=== PATIENT | female | born 1955 | race Caucasian/White ===

== ENCOUNTER → 2017-06-06 | Outpatient (CLI) | payer BC | END | disposition home or self-care (01) | LOC: C.PAPS 17:18 | PROVIDERS: ATTEND Physician Assistant Medical | DX: Z01.419 Encounter for gynecological examination (general) (routine) without abnormal findings (principal) ==

== ENCOUNTER → 2017-06-19 | Outpatient (CLI) | payer BC ==
--- NOTE | 2017-06-19 15:10 | MAMMOGRAPHY REPORT ---
BILATERAL DIGITAL SCREENING MAMMOGRAM TOMOSYNTHESIS WITH CAD: 06/19/2017 CLINICAL HISTORY: Routine screening. Patient has no complaints. TECHNIQUE: Breast tomosynthesis in addition to standard 2D mammography was performed. Current study was also evaluated with a Computer Aided Detection (CAD) system. COMPARISON: Comparison is made to exams dated: 06/16/2016 mammogram, 06/14/2015 mammogram, 06/11/2014 m ammogram, 06/10/2013 mammogram, 06/04/2012 mammogram, and 05/24/2010 mammogram - [facility]. BREAST COMPOSITION: The tissue of both breasts is heterogeneously dense, which may obscure small mas ses. FINDINGS: There is a focal asymmetry in the 12:00 to 12:30 middle to posterior right breast, best se en on the tomosynthesis images. Although this could represent normal overlapping fibroglandular tiss ue, additional spot compression tomosynthesis views with possible ultrasound are recommended. No other suspicious mass, architectural distortion or cluster of microcalcifications is seen bilatera lly. IMPRESSION: ACR BI-RADS CATEGORY 0: INCOMPLETE EVALUATION: NEED ADDITIONAL IMAGING EVALUATION The focal asymmetry in the 12:00 to 12:30 right breast needs additional imaging evaluation. The patient will be called to schedule an appointment. Approximately 10% of breast cancers are not detected with mammography. A negative mammographic report should not delay biopsy if a clinically suggestive mass is present. Sinai Roger M.D. ay/:06/19/2017 08:45:19 [place] Former: Isabelle Molina, [facility] letter sent: Addl Imaging 0 BI-RADS Code: ACR BI-RADS Category 0: Incomplete Evaluation: Need Additional Imaging Evaluation
== END | disposition home or self-care (01) ==
LOC: C.MAMM 08:12
PROVIDERS: ATTEND Internal Medicine Geriatric Medicine
DX: Z12.31 Encounter for screening mammogram for malignant neoplasm of breast (principal); N64.89 Other specified disorders of breast

== ENCOUNTER → 2017-06-27 | Outpatient (CLI) | payer BC ==
--- NOTE | 2017-06-27 14:12 | MAMMOGRAPHY REPORT ---
UNILATERAL RIGHT DIGITAL DIAGNOSTIC MAMMOGRAM TOMOSYNTHESIS AND TARGETED RIGHT ULTRASOUND: 06/27/2017 CLINICAL HISTORY: Callback from screening mammogram for right breast asymmetry. TECHNIQUE: Breast tomosynthesis in addition to standard 2D mammography was performed. Spot compress ion right CC and MLO 2-D and tomosynthesis images were obtained. COMPARISON: Comparison is made to exams dated: 06/19/2017 mammogram, 06/16/2016 mammogram, 06/14/2015 mammogram, 06/11/2014 mammogram, 06/10/2013 mammogram, and 06/04/2012 mammogram - [facility]. BREAST COMPOSITION: The tissue of the right breast is heterogeneously dense, which may obscure small masses. FINDINGS: The previously described asymmetry within the right 12 to 12:30 breast effaces on the addit ional spot compression views, and has the appearance of normal fibroglandular tissue on the additiona l tomosynthesis images. No suspicious mass, architectural distortion, or other suspicious finding is seen on the additional views. Targeted ultrasound was performed of the right 12 to 1:00 breast in the region of the mammographic as ymmetry. Sonographically normal tissue is seen in this region, without evidence of a mass or other s uspicious sonographic abnormality. IMPRESSION: ACR BI-RADS CATEGORY 2: BENIGN, TARGETED ULTRASOUND ACR BI-RADS CATEGORY 2: BENIGN The right breast asymmetry effaces on the additional views, without corresponding suspicious sonograp hic abnormality evident. Findings are benign and compatible with normal overlapping fibroglandular t issue. There is no mammographic or targeted sonographic evidence of malignancy. A 1 year screening m ammogram is recommended. The patient has been verbally notified of the results. Approximately 10% of breast cancers are not detected with mammography. A negative mammographic report should not delay biopsy if a clinically suggestive mass is present. Malgorzata Sargent M.D. /:06/27/2017 13:45:24 [place] Iron[employer]: Estella BUSTOS(Lucas)(M), [facility] letter sent: Normal 1/2 BI-RADS Code: ACR BI-RADS Category 2: Benign Ultrasound BI-RADS: ACR BI-RADS Category 2: Benign
== END | disposition home or self-care (01) ==
LOC: C.MAMM 13:15
PROVIDERS: ATTEND Internal Medicine Geriatric Medicine
DX: N64.89 Other specified disorders of breast (principal)

== ENCOUNTER → 2018-02-01 | Outpatient (CLI) | payer BC ==
[2018-02-01 11:28] LABS: BASO % 0.5 %; BASO ABS # 0.02 K/uL (0-0.2); EOS % 4.8 %; HEMATOCRIT 38.5 % (37-47); HEMOGLOBIN 13.5 g/dL (12.0-16.0); LYMPH % 42.3 %; LYMPH ABS # 1.75 K/uL (1.2-3.4); MEAN CELL VOLUME 91.2 fL (80-100); MEAN CORPUSCULAR HGB CONC 35.1 g/dl (32-36); MEAN PLATELET VOLUME 11.3 fL (7.4-10.4); MONO % 8.2 %; MONO ABS # 0.34 K/uL (0.11-0.59); NEUT % 44.2 %; NEUT ABS # 1.83 K/uL (1.4-6.5); PLATELET COUNT 218 K/uL (130-400); RED CELL DISTRIBUTION WIDTH CV 12.3 % (11.5-14.5); RED CELL DISTRIBUTION WIDTH SD 41.1 fL (36.4-46.3); WHITE BLOOD COUNT 4.14 K/uL (4.8-10.8)
[2018-02-01 11:47] LABS: ALBUMIN 3.9 gm/dl (3.4-5.0); ALKALINE PHOSPHATASE 107 U/L (45-117); ALT/SGPT 27 U/L (12-78); AST/SGOT 20 U/L (15-37); BLOOD UREA NITROGEN 23 mg/dl (7-18); CALCIUM 9.1 mg/dl (8.5-10.1); CARBON DIOXIDE 27 mmol/L (21-32); CHOLESTEROL 215 mg/dl (0-200); CREATININE 0.91 mg/dl (0.60-1.20); GLUCOSE 99 mg/dl (70-99); LDL CHOLESTEROL CALCULATED 139 mg/dl; POTASSIUM 4.2 mmol/L (3.5-5.1); SODIUM 138 mmol/L (136-145); TOTAL PROTEIN 7.9 gm/dl (6.4-8.2)
[2018-02-04 11:33] LABS: CA 125 **TC 29256X 6 U/ML (<35)
== END | disposition home or self-care (01) ==
LOC: C.LABBC 07:38
PROVIDERS: ATTEND Internal Medicine
DX: Z00.00 Encounter for general adult medical examination without abnormal findings (principal); R14.0 Abdominal distension (gaseous); R19.4 Change in bowel habit

== ENCOUNTER → 2018-02-05 | Outpatient (CLI) | payer BC | END | disposition home or self-care (01) | LOC: C.LABBC 14:37 | PROVIDERS: ATTEND Internal Medicine | DX: Z00.00 Encounter for general adult medical examination without abnormal findings (principal); R14.0 Abdominal distension (gaseous); R19.4 Change in bowel habit ==

== ENCOUNTER 2019-05-30 07:39 | Inpatient (IN) ==
[2019-05-30] MEDS ORDERED: OPTIRAY 320 125ml IV PRN (08:02)
[2019-05-30] MEDS ORDERED: MAGNESIUM SULFATE / D5W 1 GM/100 ML BAG IV ONE (08:05)
[2019-05-30] MEDS ORDERED: MAGNESIUM SULFATE 1GM / D5W BAG IV ONE (08:07)
[2019-05-30] MEDS ORDERED: SODIUM CHLORIDE 0.9% 1000ML 1,000 ML IV ONE (08:07)
[2019-05-30 08:11] LABS: Basophils # (auto) 0.02 K/uL (0-0.2); Basophils % (auto) 0.4 %; Eosinophils # (auto) 0.21 K/uL (0-0.5); Eosinophils % (auto) 4.4 %; Hemoglobin 13.7 g/dL (12.0-16.0); Lymphocytes # (auto) 1.98 K/uL (1.2-3.4); Lymphocytes % (auto) 41.5 %; Mean Corpuscular Hemoglobin 32.3 pg (25-34); Mean Corpuscular Hgb Conc 35.1 g/dL (32-36); Mean Platelet Volume 10.6 fL (7.4-10.4); Monocytes # (auto) 0.35 K/uL (0.11-0.59); Monocytes % (auto) 7.3 %; Neutrophils # (auto) 2.21 K/uL (1.4-6.5); Neutrophils % (auto) 46.4 %; Platelet Count 234 K/uL (130-400); RDW Coefficient of Variation 12.5 % (11.5-14.5); RDW Standard Deviation 42.1 fL (36.4-46.3); Red Blood Count 4.24 M/uL (4.2-5.4); White Blood Count 4.77 K/uL (4.8-10.8)
[2019-05-30 08:15] LABS: iSTAT Creatinine 0.9 mg/dl (0.6-1.3); iSTAT Hemoglobin 13.6 g/dl (12.0-16.0); iSTAT Ionized Calcium 1.2 mmol/l (1.12-1.32); iSTAT Potassium 3.6 mEq/L (3.3-5.0)
--- NOTE | 2019-05-30 08:21 | CT Scan Report ---
CT angio head w con CLINICAL HISTORY: 64 years-old Female presenting with left sided weakness, stroke evaluation. TECHNIQUE: Multidetector CT angiography of the head was performed after the administration of intrave nous contrast. 3-D volumetric and/or maximum intensity projection (MIP) images were subsequently mirian nstructed for review. IV contrast: 120 mL of Optiray 320. One or more dose lowering techniques were u sed consistent with the principles of ALARA (as low as reasonably achievable), including automatic ex posure control, mA or kV adjustment to individual patient size, and/or use of iterative reconstructio n. COMPARISON: None. CT DOSE (mGy.cm): The estimated cumulative dose is 1080.28 mGy.cm. FINDINGS: Manager Outpatient topogram: Unremarkable. Anterior circulation: Intracranial portions of the internal carotid arteries patent to the level of t he termini. Anterior cerebral arteries (VLADIMIR) patent with 3 A2 segments noted, two of which arises fro m the right VLADIMIR. Middle cerebral arteries patent. Anterior communicating artery is hypoplastic or apl astic. Posterior circulation: Codominant vertebral arteries. Intradural portions of the vertebral arteries p atent. Posterior inferior cerebellar arteries patent. Basilar artery patent. Anterior inferior cerebe llar arteries poorly visualized. Superior cerebellar arteries patent. Posterior cerebral arteries pat ent. Posterior communicating arteries hypoplastic or aplastic. Dural venous sinuses: Patent. Other: Allowing for the phase of contrast, brain parenchyma within normal limits. Calvarium intact. IMPRESSION: 1. No evidence of aneurysm, focal vessel occlusion, or significant stenosis of the intracranial soila eliana. Electronically signed by: Shawn Bueno M.D. 05/30/2019 8:20 AM
--- NOTE | 2019-05-30 08:21 | CT Scan Report ---
CT angio neck with con HISTORY: left sided weakness TECHNIQUE: Multiaxial CT angiography of the neck was performed IV contrast: 100 cc nonionic All eduardo urements were calculated based on NASCET criteria. Maximum intensity projection images were also obt ained. A dose lowering technique was utilized adhering to the principles of ALARA. COMPARISON STUDY: None. FINDINGS: The aortic arch and proximal great vessels are widely patent. There is no significant sten osis, occlusion, or dissection identified within the bilateral common carotid, internal carotid, or v ertebral arteries. Moderate scattered plaque formation. No significant stenosis. IMPRESSION: No significant stenosis, occlusion, or dissection identified within the carotid or vertebral arteries . Mild to moderate scattered plaque formation The above report was generated using voice recognition software. It may contain grammatical, syntax or spelling errors. Electronically signed by: Juancarlos Majano M.D. 05/30/2019 8:20 AM
[2019-05-30 08:25] LABS: Aspartate Aminotransferase 17 U/L (15-37); BUN Creatinine Ratio 17.8 (10-20); Blood Urea Nitrogen 16 mg/dl (7-18); Calcium 9.6 mg/dl (8.5-10.1); Carbon Dioxide 25 mmol/L (21-32); Chloride 108 mmol/L (98-107); Creatinine Clr Calc Pharmacy 57.2 ml/min; Est GFR (African American) 81.6; Est GFR (Non-African American) 70.4; Glucose 105 mg/dl (70-99); Magnesium 2.1 mg/dl (1.8-2.4); Partial Thromboplastin Ratio 0.9; Partial Thromboplastin Time 25.1 Seconds (21.0-31.0); Potassium 3.6 mmol/L (3.5-5.1); Prothrombin Time 9.9 Seconds (9.0-12.0); Sodium 140 mmol/L (136-145)
--- NOTE | 2019-05-30 08:26 | CT Scan Report ---
HEAD CT NONCONTRAST CT DOSE: HISTORY: Stroke symptoms. TECHNIQUE: Multiaxial CT images of the head were performed without the use of intravenous contrast. A utomated exposure control was utilized for this study. A dose lowering technique was utilized adheri ng to the principles of ALARA. Comparison: None. Findings: The paranasal sinuses and mastoid air cells are clear. The calvarium and skull base are int act. The ventricles and sulci are within normal limits. There is no mass, hematoma, midline shift, or acute infarct. Punctate hypodensity within the left parietal periventricular white matter likely rep resents a microvascular ischemic change or an old lacunar infarct. Impression: No acute intracranial abnormality. Electronically signed by: Chase Rabago M.D. 05/30/2019 8:25 AM
[2019-05-30 08:30] LABS: Alanine Aminotransferase 28 U/L (12-78); Alkaline Phosphatase 110 U/L (45-117); Bilirubin,Total 0.8 mg/dl (0.2-1); Globulin 4.2 gm/dl (2.5-4.0); Total Protein 8.2 gm/dl (6.4-8.2); Troponin I < 0.015 ng/ml (0-0.045)
[2019-05-30] MEDS ORDERED: ASPIRIN CHEW 324 MG PO STA (08:31)
[2019-05-30] MEDS ORDERED: GADOBUTROL 65ML VIAL IV PRN (09:17)
--- NOTE | 2019-05-30 09:35 | Magnetic Resonance Report ---
Brain MRI WITH AND WITHOUT CONTRAST HISTORY: Stroke symptoms. Left leg weakness. TECHNIQUE: Multiplanar multisequence MRI of the brain was performed both before and after the intrave nous administration of contrast. COMPARISON STUDY: Head CT 05/28/2019. FINDINGS: There is a 12 mm focus of restricted diffusion within the white matter of the right posteri or frontal lobe near the high convexity. This is consistent with an acute infarct. The midline struct ures are intact. A few punctate foci of T2 hyperintensity within the periventricular white matter of the supratentorial brain. These are nonspecific but favor mild microvascular ischemic change. There i s no mass, hematoma, midline shift. The ventricles and sulci are within normal limits. There is no ma ss, hematoma, midline shift. The ventricles and sulci are within normal limits. There is an old small left parietal. Ventricular infarct. The paranasal sinuses and mastoid air cells are clear. The major vascular flow voids at the skull base are well-maintained. No abnormal enhancement. IMPRESSION: A small acute infarct within the right posterior frontal lobe near the high convexity. Electronically signed by: Chase Rabago M.D. 05/30/2019 9:33 AM
--- NOTE | 2019-05-30 09:35 | Emergency Department Note ---
Entered by uV Torres acting as a scribe for History of Present Illness General Chief complaint: Leg Injury/Pain Stated complaint: L LEG PAIN Time Seen by Provider: 05/30/19 07:49 Source: patient Mode of arrival: ambulatory Limitations: no limitations History of Present Illness Onset (ago): hour(s) 2 Location: lower extremity (left leg ) Pain Consistency: + intermittent Maximum Pain Intensity: 0 Quality: + other (numb, tingling, weak) Associated symptoms: + weakness and + other (numbness, tingling) The patient is a 64 year old female who presents to the Emergency Room with complaints of an episode of intermittent left leg pain that started at 6 am, two hours prior to arrival. The patient notes she felt numbness, tingling and weakness in her left leg. She notes that she had not had any episodes like this in the past. She reports that she had no issues with her right leg. She denies any medical history of diabetes, tobacco use, or the use of any blood thinners. Home Medications Home Medications Medication Instructions Recorded Confirmed Type No Known Home Medications 05/30/19 05/30/19 History aspirin [Ecotrin Low Strength] 81 mg PO QAM 30 Days #30 tab 05/31/19 Rx atorvastatin 40 mg PO QAM 30 Days #30 tab 05/31/19 Rx Allergies Allergy/AdvReac Type Severity Reaction Status Date / Time No Known Allergies Allergy Unverified 05/30/19 08:18 Past Med/Surg History Medical History Endometriosis Surgical History History of laparoscopy d/t endometriosis Family History Mother , at age 101 Breast cancer Brother Emphysema, unspecified Father , age 57 of a massive stroke Diabetes Stroke Social History Preferred Language: Persian Communication Ability: Effective Retention Specialist Required: No Beliefs That Will Affect Care: None marital status: Current Living Situation: Spouse current occupational status: employed 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 and A total of 10 systems reviewed and were otherwise negative Physical Exam Vital Signs Vital Signs - 24 hr 05/30/19 07:44 05/30/19 08:13 05/30/19 08:16 Temperature 36.8 C Temperature Source Oral Pulse Rate 94 H Pulse Rate [Left Finger] 93 H Respiratory Rate 16 16 Blood Pressure 132/75 Blood Pressure [Right Arm] 132/75 Blood Pressure Mean 94 Blood Pressure Mean [Right Arm] 94 Pulse Oximetry 98 98 100 Oxygen Delivery Method Room Air Room Air Room Air Sepsis Recent Fever Within 48 Hours No Sepsis New/Unexplained Change in Mental Status No Sepsis Action Taken by Nursing No Action Required 05/30/19 08:39 05/30/19 09:32 Temperature Temperature Source Pulse Rate Pulse Rate [Left Finger] 95 H 80 Respiratory Rate 18 16 Blood Pressure Blood Pressure [Right Arm] 147/90 H 147/73 H Blood Pressure Mean Blood Pressure Mean [Right Arm] 109 97 Pulse Oximetry 100 100 Oxygen Delivery Method Room Air Room Air Sepsis Recent Fever Within 48 Hours Sepsis New/Unexplained Change in Mental Status Sepsis Action Taken by Nursing GENERAL: Awake, alert, well-appearing, in no acute distress HENT: Normocephalic, atraumatic. Oropharynx unremarkable. EYES: Normal conjunctiva. Sclera non-icteric. NECK: Supple. No nuchal rigidity. FROM. No JVD. RESPIRATORY: Clear to auscultation. CARDIAC: Regular rate, normal rhythm. Extremities warm and well perfused. Pulses equal. ABDOMEN: Soft, non-distended. No tenderness to palpation. No rebound or guarding. No masses. RECTAL: Deferred. MUSCULOSKELETAL: Chest examination reveals no tenderness. The back is symmetrical on inspection without obvious abnormality. There is no CVA tenderness to palpation. No joint edema. LOWER EXTREMITIES: Calves are equal size bilaterally and non-tender. No edema. No discoloration. 4/5 Left leg strength. NEURO: Normal sensorium. No sensory or motor deficits noted. SKIN: No rash or jaundice noted. Course Course 750: The patient was evaluated in room B02. A complete history and physical exam was performed. 0810: I consulted Dr. Ba, [facility] [place] and she well evaluate the patient. 0835: Dr. Ba, [facility] was consulted and updated about the CT and the CTA of the neck and head. 0837: I consulted Brittney Raygoza, Hospitalist [facility]. She will accept the patient for admission. 0900: The patient verbally expressed understanding and agreement of the treatment plan. The patient will be admitted for further treatment. Administered Medications Discontinued Medications Aspirin (Aspirin) 324 mg PO NOW [facility] Stop: 05/30/19 08:32 Last Admin: 05/30/19 08:38 Dose: 324 mg Documented by: [id number] Aspirin (Ecotrin Ectab) 81 mg PO [facility] Stop: 06/30/19 08:59 Last Admin: 05/31/19 08:35 Dose: 81 mg Documented by: [id number] Atorvastatin Calcium (Lipitor) 40 mg PO [facility] Stop: 06/30/19 08:59 Last Admin: 05/31/19 08:35 Dose: 40 mg Documented by: [id number] Enoxaparin Sodium (Lovenox) 40 mg SQ [facility] Stop: 06/29/19 11:59 Last Admin: 05/31/19 08:35 Dose: Not Given Documented by: [id number] Admin: 05/30/19 13:16 Dose: Not Given Documented by: [id number] Gadobutrol (Gadavist 65ml) 6 ml IV ONCE PRN PRN Reason: Interaction Checking Stop: 06/03/19 09:16 Last Admin: 05/30/19 09:18 Dose: 6 ml Documented by: [id number] Magnesium Sulfate/Dextrose (Magnesium Sulfate / D5w) 1 gm in 100 mls @ 100 mls/hr IV ONE ONE Stop: 05/30/19 09:04 Last Infusion: 05/30/19 09:54 Dose: 0 mls/hr Documented by: [id number] Admin: 05/30/19 08:14 Dose: 100 mls/hr Documented by: [id number] Sodium Chloride (Nss 1000ml) 1,000 mls @ 999 mls/hr IV .Q1H1M ONE Stop: 05/30/19 09:07 Last Infusion: 05/30/19 09:00 Dose: 0 mls/hr Documented by: [id number] Admin: 05/30/19 08:14 Dose: 999 mls/hr Documented by: [id number] Sodium Chloride (Nss 1000ml) 1,000 mls @ 125 mls/hr IV .Q8H THANG Stop: 06/29/19 20:14 Last Admin: 05/31/19 13:17 Dose: Not Given Documented by: [id number] Infusion: 05/31/19 13:17 Dose: 0 mls/hr Documented by: [id number] Admin: 05/31/19 04:27 Dose: 125 mls/hr Documented by: [id number] Infusion: 05/31/19 04:26 Dose: 125 mls/hr Documented by: [id number] Admin: 05/30/19 20:26 Dose: 125 mls/hr Documented by: [id number] Ioversol (Optiray 320 125ml) 120 ml IV ONCE PRN PRN Reason: Interaction Checking Stop: 06/03/19 08:01 Last Admin: 05/30/19 08:02 Dose: 120 ml Documented by: [id number] Magnesium Sulfate/Dextrose (Magnesium Sulfate / D5w) Confirm Administered Dose 1 gm IV .STK-MED ONE Stop: 05/30/19 08:08 Last Admin: 05/30/19 08:16 Dose: Not Given Documented by: [id number] Miscellaneous Information (Discharge, Stroke Patient) 1 ea N/A NOW STA Stop: 05/31/19 13:11 Last Admin: 05/31/19 14:28 Dose: 1 ea Documented by: [id number] Critical Care Time I have personally spent greater than 30 minutes of critical care time in the direct management of this patient. This includes bedside care, interpretation of diagnostic studies, and testing, discussion with consultants, patient, and family members, and other required patient management activities. This 30 minutes is in excess of all separately billable procedures. Medical Decision Making Differential Diagnosis Differential includes acute coronary syndrome, myocardial infarction, CVA, TIA, anemia, infection, pneumonia, UTI, pyelonephritis, poor nutrition, dehydration, electrolyte disturbance,hypoglycemia. Medical Records Attestation: I reviewed the patient's medical records. Home Medications Current Medication List: was personally reviewed by me Laboratory Data Result diagrams: 05/31/19 05:59 05/31/19 05:59 Lab Results 05/30/19 05/30/19 05/30/19 Range/Units 07:59 07:59 07:59 WBC 4.77 L (4.8-10.8) K/uL RBC 4.24 (4.2-5.4) M/uL Hgb 13.7 (12.0-16.0) g/dL POC Hgb (12.0-16.0) g/dl Hct 39.0 (37-47) % POC Hct (37-47) % MCV 92.0 (80-100) fL MCH 32.3 (25-34) pg MCHC 35.1 (32-36) g/dL RDW Std Deviation 42.1 (36.4-46.3) fL RDW Coeff of Edy 12.5 (11.5-14.5) % Plt Count 234 (130-400) K/uL MPV 10.6 H (7.4-10.4) fL Immature Gran % (Auto) 0.0 % Neut % (Auto) 46.4 % Lymph % (Auto) 41.5 % [place] % (Auto) 7.3 % Eos % (Auto) 4.4 % Baso % (Auto) 0.4 % Immature Gran # (Auto) 0.00 (0.00-0.02) K/uL Neut # (Auto) 2.21 (1.4-6.5) K/uL Lymph # (Auto) 1.98 (1.2-3.4) K/uL [place] # (Auto) 0.35 (0.11-0.59) K/uL Eos # (Auto) 0.21 (0-0.5) K/uL Baso # (Auto) 0.02 (0-0.2) K/uL PT 9.9 (9.0-12.0) Seconds INR 1.0 (0.9-1.1) APTT 25.1 (21.0-31.0) Seconds PTT Ratio 0.9 POC Sodium (135-144) mEq/L Sodium 140 (136-145) mmol/L POC Potassium (3.3-5.0) mEq/L Potassium 3.6 (3.5-5.1) mmol/L POC Chloride (101-112) mEq/L Chloride 108 H (98-107) mmol/L Carbon Dioxide 25 (21-32) mmol/L POC Total CO2 (24-31) mEq/l Anion Gap 8.0 (3-11) POC Anion Gap (16-25) mmol/L POC BUN (7-18) mg/dl BUN 16 (7-18) mg/dl Creatinine 0.88 (0.6-1.2) mg/dl POC Creatinine (0.6-1.3) mg/dl Est Cr Clr Drug Dosing 57.2 ml/min Est GFR ( Amer) 81.6 Est GFR (Non-Af Amer) 70.4 BUN/Creatinine Ratio 17.8 (10-20) Glucose 105 H (70-99) mg/dl POC Glucose (other) (70-99) mg/dl Estimat Average Glucose mg/dl Hemoglobin A1c (4.5-5.6) % Calcium 9.6 (8.5-10.1) mg/dl POC Ioniz Calcium Cassius (1.12-1.32) mmol/l Magnesium 2.1 (1.8-2.4) mg/dl Total Bilirubin 0.8 (0.2-1) mg/dl AST 17 (15-37) U/L ALT 28 (12-78) U/L Alkaline Phosphatase 110 (45-117) U/L Troponin I < 0.015 (0-0.045) ng/ml Total Protein 8.2 (6.4-8.2) gm/dl Albumin 4.0 (3.4-5.0) gm/dl Globulin 4.2 H (2.5-4.0) gm/dl Albumin/Globulin Ratio 1.0 (0.9-2) 05/30/19 05/30/19 Range/Units 07:59 07:59 WBC (4.8-10.8) K/uL RBC (4.2-5.4) M/uL Hgb (12.0-16.0) g/dL POC Hgb 13.6 (12.0-16.0) g/dl Hct (37-47) % POC Hct 40 (37-47) % MCV (80-100) fL MCH (25-34) pg MCHC (32-36) g/dL RDW Std Deviation (36.4-46.3) fL RDW Coeff of Edy (11.5-14.5) % Plt Count (130-400) K/uL MPV (7.4-10.4) fL Immature Gran % (Auto) % Neut % (Auto) % Lymph % (Auto) % [place] % (Auto) % Eos % (Auto) % Baso % (Auto) % Immature Gran # (Auto) (0.00-0.02) K/uL Neut # (Auto) (1.4-6.5) K/uL Lymph # (Auto) (1.2-3.4) K/uL [place] # (Auto) (0.11-0.59) K/uL Eos # (Auto) (0-0.5) K/uL Baso # (Auto) (0-0.2) K/uL PT (9.0-12.0) Seconds INR (0.9-1.1) APTT (21.0-31.0) Seconds PTT Ratio POC Sodium 141 (135-144) mEq/L Sodium (136-145) mmol/L POC Potassium 3.6 (3.3-5.0) mEq/L Potassium (3.5-5.1) mmol/L POC Chloride 106 (101-112) mEq/L Chloride (98-107) mmol/L Carbon Dioxide (21-32) mmol/L POC Total CO2 25 (24-31) mEq/l Anion Gap (3-11) POC Anion Gap 15.0 L (16-25) mmol/L POC BUN 16 (7-18) mg/dl BUN (7-18) mg/dl Creatinine (0.6-1.2) mg/dl POC Creatinine 0.9 (0.6-1.3) mg/dl Est Cr Clr Drug Dosing ml/min Est GFR ( Amer) Est GFR (Non-Af Amer) BUN/Creatinine Ratio (10-20) Glucose (70-99) mg/dl POC Glucose (other) 106 H (70-99) mg/dl Estimat Average Glucose 114 mg/dl Hemoglobin A1c 5.6 (4.5-5.6) % Calcium (8.5-10.1) mg/dl POC Ioniz Calcium Cassius 1.20 (1.12-1.32) mmol/l Magnesium (1.8-2.4) mg/dl Total Bilirubin (0.2-1) mg/dl AST (15-37) U/L ALT (12-78) U/L Alkaline Phosphatase (45-117) U/L Troponin I (0-0.045) ng/ml Total Protein (6.4-8.2) gm/dl Albumin (3.4-5.0) gm/dl Globulin (2.5-4.0) gm/dl Albumin/Globulin Ratio (0.9-2) Imaging Data Radiologist's Impression: Radiology results as stated below per my review and the radiologist's interpretation: HEAD CT NONCONTRAST CT DOSE: HISTORY: Stroke symptoms. TECHNIQUE: Multiaxial CT images of the head were performed without the use of intravenous contrast. Automated exposure control was utilized for this study. A dose lowering technique was utilized adhering to the principles of ALARA. Comparison: None. Findings: The paranasal sinuses and mastoid air cells are clear. The calvarium and skull base are intact. The ventricles and sulci are within normal limits. There is no mass, hematoma, midline shift, or acute infarct. Punctate hypodensity within the left parietal periventricular white matter likely represents a microvascular ischemic change or an old lacunar infarct. Impression: No acute intracranial abnormality. Electronically signed by: Chase Rabago M.D. 05/30/2019 8:[address] angio head w con CLINICAL HISTORY: 64 years-old Female presenting with left sided weakness, stroke evaluation. TECHNIQUE: Multidetector CT angiography of the head was performed after the administration of intravenous contrast. 3-D volumetric and/or maximum intensity projection (MIP) images were subsequently reconstructed for review. IV contrast: 120 mL of Optiray 320. One or more dose lowering techniques were used consistent with the principles of ALARA (as low as reasonably achievable), including auto matic exposure control, mA or kV adjustment to individual patient size, and/or use of iterative reconstruction. COMPARISON: None. CT DOSE (mGy.cm): The estimated cumulative dose is 1080.28 mGy.cm. FINDINGS: Java Manager topogram: Unremarkable. Anterior circulation: Intracranial portions of the internal carotid arteries patent to the level of the termini. Anterior cerebral arteries (VLADIMIR) patent with 3 A2 segments noted, two of which arises from the right VLADIMIR. Middle cerebral arteries patent. Anterior communicating artery is hypoplastic or aplastic. Posterior circulation: Codominant vertebral arteries. Intradural portions of the vertebral arteries patent. Posterior inferior cerebellar arteries patent. Basilar artery patent. Anterior inferior cerebellar arteries poorly visualized. Superior cerebellar arteries patent. Posterior cerebral arteries patent. Posterior communicating arteries hypoplastic or aplastic. Dural venous sinuses: Patent. Other: Allowing for the phase of contrast, brain parenchyma within normal limits. Calvarium intact. IMPRESSION: 1. No evidence of aneurysm, focal vessel occlusion, or significant stenosis of the intracranial arteries. Electronically signed by: Shawn Bueno M.D. 05/30/2019 8:[address] angio neck with con HISTORY: left sided weakness TECHNIQUE: Multiaxial CT angiography of the neck was performed IV contrast: 100 cc nonionic All measurements were calculated based on NASCET criteria. Maximum intensity projection images were also obtained. A dose lowering technique was utilized adhering to the principles of ALARA. COMPARISON STUDY: None. FINDINGS: The aortic arch and proximal great vessels are widely patent. There is no significant stenosis, occlusion, or dissection identified within the bilateral common carotid, internal carotid, or vertebral arteries. Moderate scattered plaque formation. No significant stenosis. IMPRESSION: No significant stenosis, occlusion, or dissection identified within the carotid or vertebral arteries. Mild to moderate scattered plaque formation The above report was generated using voice recognition software. It may contain grammatical, syntax or spelling errors. Electronically signed by: Juancarlos Majano M.D. 05/30/2019 8:20 AM ECG Data Indication: + weakness Rate (beats per minute): 95 Rhythm: + normal sinus ECG Intervals/blocks: + Normal QRS (66) ECG ST segments: no ST depression and no ST elevation ECG Findings: + Other (Septal Infarct) Comparison ECG Date: from (02/18/16) Change: no significant change Blood Pressure Blood Pressure Findings: Elevated blood pressure MDM Narrative This is a 64-year-old female who presents emergency department unable to move her left leg. Because of the patient's age a stroke alert was immediately initiated. I did consider this patient a candidate for TPA however the decision was made not to give it as the patient's last known normal is 930 last evening. The patient was immediately sent for CAT scan as well as CTA of the head and neck. This does not show any evidence of stroke. She was given magnesium as well as aspirin and sent for an MRI. Prior to being sent to MRI she was discussed with the stroke neurologist. The patient does not have an elevation in her white blood cell count has a normal renal profile normal liver profile. She was given a normal saline bolus here in the emergency department. Both patient and are in agreement with the treatment plan. Impression & Plan Weakness of left leg, Acute CVA (cerebrovascular accident), Left leg numbness Discharge Plan Visit Data *Final* Discharge Date/Time: 05/30/19 09:53 Chief Complaint: Leg Injury/Pain Stated Complaint: L LEG PAIN ED Provider: Artemio Cortés Discharge Problem: Weakness of left leg, Acute CVA (cerebrovascular accident), Left leg numbness Patient Disposition: Admitted As Inpatient Discharge Instructions Interventions: ED Discharge Assessment Last Done: 05/30/19 09:53 The scribe's documentation has been prepared under my direction and personally reviewed by me in its entirety. I confirm that the note above accurately reflects all work, treatment, procedures, and medical decision making performed by me.
[2019-05-30] MEDS ORDERED: PHARMACIST DISCHARGE MED REC CONSULT PRN (10:11)
[2019-05-30 11:10] LABS: Estimated Average Glucose 114 mg/dl; Hemoglobin A1C 5.6 % (4.5-5.6)
--- NOTE | 2019-05-30 11:30 | Neurology Consultation ---
Date of Consultation May 30, 2019 Assessment & Plan (1) Acute CVA (cerebrovascular accident): (2) Weakness of left leg: (3) Left leg numbness: Patient had the onset of left lower extremity weakness and numbness when she woke this morning. This has persisted and she has no other neurologic deficits, meningeal signs, or encephalopathy. MRI of the brain shows a very small right posterior frontal convexity acute stroke likely from small vessel ischemic disease. MRI also shows some mild old, nonspecific small vessel ischemic disease present. Her risk factors for stroke are minimal. Her father at a young age of stroke but he had diabetes. There may be a genetic component to this. Recommendations: 1. Continue 81 milligram aspirin tablet daily. 2. Blood pressure could should be maintained at a mean arterial pressure of approximately 95-100. Hemoglobin A1c of 5.6 is unremarkable. We are awaiting lipid profile and will make recommendations regarding dosage after this. 3. Physical and occupational therapy and increase activity as able. 4. Awaiting echocardiogram. 5. She may need further studies to evaluate for occult cardiac dysrhythmia. 6. Agree with obtaining laboratory studies to evaluate for clotting disorders. Otherwise, I spent a total of 70 minutes with this case including review of records, review of MRI films, direct evaluation patient at bedside, and discussion of the case with the patient and her at bedside, RN at bedside, and Dr. Raygoza, including differential diagnosis and treatment options. History of Present Illness Reason for Consultation: Patient is a 64-year-old, who I was asked to see the request of Dr. Raygoza, for neurologic consultation regarding stroke. Requesting Physician: Dr. Raygoza Attending Physician: Brittney Raygoza MD History of Present Illness This patient has no history of hypertension, diabetes, dyslipidemia, heart disease, or migraine headaches. She smoked a few cigarettes (a pack every 6 weeks) in her late teens and early 20s but has not smoked for 40 years. Patient went to bed on May 29 at 2130 feeling fine. Although she does not remember, her , who is present at bedside today, believes that she got up to go to the bathroom around 2 a.m.. Patient then woke up around 0630 this morning and felt fine. She set up got out of bed and stood but then, when she went to walk, she noted that her left leg was weak and somewhat tingly. She had difficulty ambulating but did not fall. She had no symptoms in her left arm, face, or right side. There was no pain. She had no slurred speech or mentation problems. She was not dizzy. Sometime after she was up she noted a very mild nonspecific bifrontal headache As sometime went by and she realized that her leg was not getting better she stops to shaved her legs in anticipation of going to the hospital and then called her . He then came back from work and left to bring her to the hospital. She arrived at 0744 with a temperature 36.8, pulse 94, blood pressure 132/75, respiratory rate 16, and O2 saturation 98 percent. In the emergency room it was noted that her left leg was mildly weak. Tele stroke was obtained and it was decided that she was out of the window for tPA or other procedures. CT scan of the head showed no acute changes. CT angiography of the head and neck were unremarkable with no vascular stenoses or anomalies. CBC and Chem profile were unremarkable. MRI of the brain showed a very small (12 millimeter in biggest diameter) acute posterior right frontal lobe stroke near the convexity. There was some mild old small vessel ischemic changes seen also. These were very nonspecific. I reviewed these films. I also reviewed the films with the patient and her at bedside. Around 1100 patient still has some mild leg weakness and some tingling in the lower aspect of the leg but no other symptoms. Her headache has resolved. Allergies Allergy/AdvReac Type Severity Reaction Status Date / Time No Known Allergies Allergy Unverified 05/30/19 08:18 Home Medications Home Medications Medication Instructions Recorded Confirmed Type No Known Home Medications 05/30/19 05/30/19 History Patient History Surgical History History of laparoscopy Family History Mother , at age 101 Breast cancer Brother Emphysema, unspecified Father , age 57 of a massive stroke Diabetes Stroke Social History Preferred Language: [place] Communication Ability: Effective Customer Solutions Representative Required: No Beliefs That Will Affect Care: None marital status: Current Living Situation: Spouse current occupational status: employed 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, 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 Other Information That Helps Us Care for You: No other: No known exposure to toxins Feels Safe at Home: Yes Safety Concerns: Feels Safe At This Time Smoking Status: Former smoker Cigarettes Per Day: 1 ; Number of Years Since Quit: 40 ; Hx Alcohol Use: No Hx Substance Use: No Physical Activity Frequency: Does not Exercise Review of Systems Constitutional: no fever, no fatigue and no weakness Eyes: no diplopia, no eye pain and no worsening vision Ear, Nose, Mouth, Throat: no ear pain, no tinnitus, no hearing loss, no dizziness, no snoring, no hoarseness and no dysphagia Respiratory: no cough and no dyspnea Cardiovascular: no chest pain, no palpitations and no lightheadedness Gastrointestinal: no abdominal pain, no nausea and no vomiting Genitourinary: no dysuria, no urinary frequency and no urinary incontinence Musculoskeletal: no back pain, no neck pain, no radicular pain, no joint pain and no myalgia Integumentary: no rash and no lesions Neurologic: + localized weakness, + tingling and + numbness; no gait abnormality, no generalized weakness, no tremor(s), no abnormal movements, no headache(s), no abnormal speech, no confusion and no memory loss Psychiatric: no depression, no irritability, no anxiety, no difficulty concentrating, no confusion and no hallucinations Endocrine: no fatigue and no flushing Hematologic / Lymphatic: no easy bleeding and no easy bruising Allergy / Immunological: no urticaria and no problem reported Physical Exam Physical Exam: The patient is right-handed. The patient is awake, alert, and attentive. Speech is normal without any aphasia or dysarthria. She can name objects, repeat phrases, and has normal spontaneous speech. Mentation and thought processes are intact, with orientation to person, place and time, and normal fund of knowledge. Attention and concentration are normal. Mood and affect are normal and appropriate. General appearance and grooming are normal. Short and long-term memory are intact. The discs are sharp with positive venous pulsations bilaterally. There are no exudates, hemorrhages, or blood vessel changes seen. Pupils are 4 mm bilaterally and reactive to light. Extraocular eye muscles are intact without nystagmus. Visual acuity and visual santizo seem normal grossly to confrontation. There are no deficits to sensation in the face in all 3 distributions of the fi fth cranial nerve bilaterally. Corneal reflexes are positive bilaterally. Facial strength and symmetry was normal bilaterally. Hearing seems normal to whisper and finger rub bilaterally. Palate moves well without asymmetry. There is normal sternocleidomastoid and trapezius (shoulder shrug) strength bilaterally. Tongue is midline with good strength bilaterally. Neck has a full range of motion without discomfort. There are no cervical bruits bilaterally. There are no cranial or ocular bruits. Heart is without murmur. There is a regular rhythm and rate. Cervical, thoracic, and lumbar spine are nontender to palpation. Gait is narrow based, with good arm swing, but she limp secondary to left leg weakness. Stance is normal eyes open. With outstretched arms there is no drift. There are no resting, postural, or action tremors. There is no ataxia with finger to nose testing. There is good facility in the hands. No other abnormal involuntary movements are noted. Motor strength is 5/5 diffusely in the arms bilaterally including deltoids, biceps, triceps, brachioradialis, wrist flexors and extensors, credit assistant, and intrinsic hand muscles. Motor strength is 5/5 diffusely in the right leg, i ncluding hip flexors, quadriceps, hamstrings, gastrocnemius, tibialis anterior, tibialis posterior, and Peroneii muscles. The left lower extremity has 4/5 strength proximally and 4+/5 strength distally. The limbs have good tone without rigidity or spasticity. There is no atrophy noted in the muscles. Muscle bulk is normal, there is no tenderness to palpation, no myotonia to percussion, and no fasciculations seen. Sensory examination is intact to touch and pin throughout all 4 limbs diffusely. Reflexes are 2/4 in the biceps, triceps, brachioradialis, quadriceps, and Achilles tendons bilaterally. There is no clonus bilaterally. Toes are downgoing with plantar stimulation bilaterally. Peripheral pulses are present and of normal quality distally in all 4 limbs. There is no peripheral edema noted in the limbs. Results & Data Vital Signs (Past 12 Hours) Vital Signs Temp Pulse Pulse Resp BP BP Pulse Ox 05/30/19 10:33 80 05/30/19 10:14 36.7 C 82 19 144/78 H 100 05/30/19 09:32 80 16 147/73 H 100 05/30/19 08:39 95 H 18 147/90 H 100 05/30/19 08:16 93 H 16 132/75 100 05/30/19 08:13 98 05/30/19 07:44 36.8 C 94 H 16 132/75 98 Diagnostic Findings Brain MRI WITH AND WITHOUT CONTRAST HISTORY: Stroke symptoms. Left leg weakness. TECHNIQUE: Multiplanar multisequence MRI of the brain was performed both before and after the intravenous administration of contrast. COMPARISON STUDY: Head CT 05/28/2019. FINDINGS: There is a 12 mm focus of restricted diffusion within the white matter of the right posterior frontal lobe near the high convexity. This is consistent with an acute infarct. The midline structures are intact. A few punctate foci of T2 hyperintensity within the periventricular white matter of the supratentorial brain. These are nonspecific but favor mild microvascular ischemic change. There is no mass, hematoma, midline shift. The ventricles and sulci are within normal limits. There is no mass, hematoma, midline shift. The ventricles and sulci are within normal limits. There is an old small left parietal. Ventricular infarct. The paranasal sinuses and mastoid air cells are clear. The major vascular flow voids at the skull base are well-maintained. No abnormal enhancement. IMPRESSION: A small acute infarct within the right posterior frontal lobe near the high convexity. Electronically signed by: Chase Rabago M.D. 05/30/2019 9:33 AM PG Care Time/CCT Total # of Minutes Spent Total Time Spent with Patient: Total time spent is greater than 50% in coordination of care (as documented) at patient's floor/unit and/or counseling patient:
--- NOTE | 2019-05-30 12:43 | History & Physical Report ---
Date of Service May 30, 2019 Assessment & Plan (1) Acute CVA (cerebrovascular accident): * Presented with acute onset left lower extremity weakness and numbness. * MRI brain: very small right posterior frontal convexity acute CVA likely from small vessel disease; also had mild old small vessel changes. * Head/neck CTA negative; Head CT also negative. * ECHO is pending completion. * Tele monitoring; will also arrange outpatient Holter monitor to evaluate for arrhythmias. * Neuro checks q2hr. * Hemoglobin A1C 5.6; continue heart healthy diet. * Fasting lipid panel is pending started Atorvastatin 40 mg and ASA 81 mg. * Speech therapy -- approved for regular diet. * PT/OT evaluation for discharge planning. * Neurology consulted, appreciate input. * permissive HTN (2) Weakness of left leg: * Acute symptoms started this morning stroke work up/treatment as noted above. * No indication for spine imaging. * PT/OT evaluation for discharge planning. (3) Leukopenia: WBC count mildly low, could be normal for her Hgb and plts normal -follow CBC (4) DVT prophylaxis: * Lovenox 40mg SQ Dispo: PCU/tele for acute CVA; discharge likely on 05/31/19 pending PT/OT evaluation. History of Present Illness Chief Complaint: Left leg weakness Primary Care Provider: Nora Lucia PA-C Patient is a 64yo white female with PMH only significant for endometriosis s/p laparotomy presented to the emergency department for left lower leg weakness starting between 6-6:30 this morning. She is accompanied by her at bedside. The patient was doing well prior to going to bed last evening and admits that she had got up during the night to use the bathroom and did not notice any problem at that time. Her states he left for work around six and the patient states after he left she went to get up out of bed and noticed that her left leg was significantly weaker than the right. She states she did have associated numbness and tingling, and called her to be taken to the emergency room. Patient and deny and slurred speech, pain, dizziness. The patient states she only takes a multivitamin on a daily basis, never a smoker, rarely drinks alcohol, and denies any history of HTN, DM, afib/flutter or bleeding/clotting disorders. She had a slightly elevated LDL cholesterol last year, but states she was never initiated on any medications at that time. She states she does have a family history of diabetes, specifically her father, who ended up dying due to a massive stroke due to complications of his diabetes. Her mother had a history of hypertension, but lived to 101. ER course: 324mg ASA, CTA head/neck with mild-moderate plaque formation, MRI pending. Afebrile, labs without abnormality. given 1gm mag despite being 2.1. BP 132/75. 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 Required: No Beliefs That Will Affect Care: None marital status: Current Living Situation: Spouse current occupational status: employed 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, 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 Other Information That Helps Us Care for You: No other: No known exposure to toxins Feels Safe at Home: Yes Safety Concerns: Feels Safe At This Time Smoking Status: Former smoker Cigarettes Per Day: 1 ; Number of Years Since Quit: 40 ; Hx Alcohol Use: No Hx Substance Use: No Physical Activity Frequency: Does not Exercise Review of Systems Constitutional: no fever and no chills Eyes: no blind spots and no diplopia Ear, Nose, Mouth, Throat: no tinnitus, no dizziness and no dysphagia Respiratory: no cough and no dyspnea Cardiovascular: no chest pain, no dyspnea, no palpitations and no edema Gastrointestinal: no abdominal pain, no nausea, no vomiting, no constipation and no diarrhea/loose stools Genitourinary: no dysuria and no hematuria Psychiatric: no behavioral changes, no irritability and no anxiety Endocrine: no cold intolerance and no heat intolerance Hematologic / Lymphatic: no easy bleeding and no coagulopathy Physical Exam Constitutional: WD/WN, vitals as above Eyes: PERRL, conjunctivae normal, anicteric sclerae ENMT: external ear and nose normal, oropharynx normal Neck: trachea midline, no thyromegaly Respiratory: normal respiratory effort, lungs clear to auscultation Cardiovascular: RRR, no murmur, no edema Gastrointestinal (Abdomen): normal bowel sounds, soft, nontender, no hepa tosplenomegaly 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 upper extremities LLE strength 4/5, RLE 5/5 Skin: no rashes, warm and dry Neurologic: PERRL, EOMI, accommodation nl, no face palsy, no dysarthria Without pronator drift or positive romberg dyskinesia of LLE with heel to kyle Psychiatric: A+Ox3, euthymic affect Lymphatic: no cervical or axillary lymphadenopathy Results & Data Vital Signs (Past 12 Hours) Vital Signs Temp Pulse Pulse Resp BP BP Pulse Ox 05/30/19 10:33 80 05/30/19 10:14 36.7 C 82 19 144/78 H 100 05/30/19 09:32 80 16 147/73 H 100 05/30/19 08:39 95 H 18 147/90 H 100 05/30/19 08:16 93 H 16 132/75 100 05/30/19 08:13 98 05/30/19 07:44 36.8 C 94 H 16 132/75 98 Laboratory Results 05/30/19 05/30/19 05/30/19 Range/Units 07:59 07:59 07:59 WBC (4.8-10.8) K/uL RBC (4.2-5.4) M/uL Hgb (12.0-16.0) g/dL POC Hgb 13.6 (12.0-16.0) g/dl Hct (37-47) % POC Hct 40 (37-47) % MCV (80-100) fL MCH (25-34) pg MCHC (32-36) g/dL RDW Std Deviation (36.4-46.3) fL RDW Coeff of Edy (11.5-14.5) % Plt Count (130-400) K/uL MPV (7.4-10.4) fL Immature Gran % (Auto) % Neut % (Auto) % Lymph % (Auto) % Bailey % (Auto) % Eos % (Auto) % Baso % (Auto) % Immature Gran # (Auto) (0.00-0.02) K/uL Neut # (Auto) (1.4-6.5) K/uL Lymph # (Auto) (1.2-3.4) K/uL Bailey # (Auto) (0.11-0.59) K/uL Eos # (Auto) (0-0.5) K/uL Baso # (Auto) (0-0.2) K/uL PT (9.0-12.0) Seconds INR (0.9-1.1) APTT (21.0-31.0) Seconds PTT Ratio POC Sodium 141 (135-144) mEq/L Sodium 140 (136-145) mmol/L POC Potassium 3.6 (3.3-5.0) mEq/L Potassium 3.6 (3.5-5.1) mmol/L POC Chloride 106 (101-112) mEq/L Chloride 108 H (98-107) mmol/L Carbon Dioxide 25 (21-32) mmol/L POC Total CO2 25 (24-31) mEq/l Anion Gap 8.0 (3-11) POC Anion Gap 15.0 L (16-25) mmol/L POC BUN 16 (7-18) mg/dl BUN 16 (7-18) mg/dl Creatinine 0.88 (0.6-1.2) mg/dl POC Creatinine 0.9 (0.6-1.3) mg/dl Est Cr Clr Drug Dosing 57.2 ml/min Est GFR ( Amer) 81.6 Est GFR (Non-Af Amer) 70.4 BUN/Creatinine Ratio 17.8 (10-20) Glucose 105 H (70-99) mg/dl POC Glucose (other) 106 H (70-99) mg/dl Estimat Average Glucose 114 mg/dl Hemoglobin A1c 5.6 (4.5-5.6) % Calcium 9.6 (8.5-10.1) mg/dl POC Ioniz Calcium Cassius 1.20 (1.12-1.32) mmol/l Magnesium 2.1 (1.8-2.4) mg/dl Total Bilirubin 0.8 (0.2-1) mg/dl AST 17 (15-37) U/L ALT 28 (12-78) U/L Alkaline Phosphatase 110 (45-117) U/L Troponin I < 0.015 (0-0.045) ng/ml Total Protein 8.2 (6.4-8.2) gm/dl Albumin 4.0 (3.4-5.0) gm/dl Globulin 4.2 H (2.5-4.0) gm/dl Albumin/Globulin Ratio 1.0 (0.9-2) 05/30/19 05/30/19 Range/Units 07:59 07:59 WBC 4.77 L (4.8-10.8) K/uL RBC 4.24 (4.2-5.4) M/uL Hgb 13.7 (12.0-16.0) g/dL POC Hgb (12.0-16.0) g/dl Hct 39.0 (37-47) % POC Hct (37-47) % MCV 92.0 (80-100) fL MCH 32.3 (25-34) pg MCHC 35.1 (32-36) g/dL RDW Std Deviation 42.1 (36.4-46.3) fL RDW Coeff of Edy 12.5 (11.5-14.5) % Plt Count 234 (130-400) K/uL MPV 10.6 H (7.4-10.4) fL Immature Gran % (Auto) 0.0 % Neut % (Auto) 46.4 % Lymph % (Auto) 41.5 % Bailey % (Auto) 7.3 % Eos % (Auto) 4.4 % Baso % (Auto) 0.4 % Immature Gran # (Auto) 0.00 (0.00-0.02) K/uL Neut # (Auto) 2.21 (1.4-6.5) K/uL Lymph # (Auto) 1.98 (1.2-3.4) K/uL Bailey # (Auto) 0.35 (0.11-0.59) K/uL Eos # (Auto) 0.21 (0-0.5) K/uL Baso # (Auto) 0.02 (0-0.2) K/uL PT 9.9 (9.0-12.0) Seconds INR 1.0 (0.9-1.1) APTT 25.1 (21.0-31.0) Seconds PTT Ratio 0.9 POC Sodium (135-144) mEq/L Sodium (136-145) mmol/L POC Potassium (3.3-5.0) mEq/L Potassium (3.5-5.1) mmol/L POC Chloride (101-112) mEq/L Chloride (98-107) mmol/L Carbon Dioxide (21-32) mmol/L POC Total CO2 (24-31) mEq/l Anion Gap (3-11) POC Anion Gap (16-25) mmol/L POC BUN (7-18) mg/dl BUN (7-18) mg/dl Creatinine (0.6-1.2) mg/dl POC Creatinine (0.6-1.3) mg/dl Est Cr Clr Drug Dosing ml/min Est GFR ( Amer) Est GFR (Non-Af Amer) BUN/Creatinine Ratio (10-20) Glucose (70-99) mg/dl POC Glucose (other) (70-99) mg/dl Estimat Average Glucose mg/dl Hemoglobin A1c (4.5-5.6) % Calcium (8.5-10.1) mg/dl POC Ioniz Calcium Cassius (1.12-1.32) mmol/l Magnesium (1.8-2.4) mg/dl Total Bilirubin (0.2-1) mg/dl AST (15-37) U/L ALT (12-78) U/L Alkaline Phosphatase (45-117) U/L Troponin I (0-0.045) ng/ml Total Protein (6.4-8.2) gm/dl Albumin (3.4-5.0) gm/dl Globulin (2.5-4.0) gm/dl Albumin/Globulin Ratio (0.9-2) Diagnostic Findings HEAD CT NONCONTRAST CT DOSE: HISTORY: Stroke symptoms. TECHNIQUE: Multiaxial CT images of the head were performed without the use of intravenous contrast. Automated exposure control was utilized for this study. A dose lowering technique was utilized adhering to the principles of ALARA. Comparison: None. Findings: The paranasal sinuses and mastoid air cells are clear. The calvarium and skull base are intact. The ventricles and sulci are within normal limits. There is no mass, hematoma, midline shift, or acute infarct. Punctate hypodensity within the left parietal periventricular white matter likely represents a microvascular ischemic change or an old lacunar infarct. Impression: No acute intracranial abnormality. CT angio head w con CLINICAL HISTORY: 64 years-old Female presenting with left sided weakness, stroke evaluation. IMPRESSION: 1. No evidence of aneurysm, focal vessel occlusion, or significant stenosis of the intracranial arteries. CT angio neck with con FINDINGS: The aortic arch and proximal great vessels are widely patent. There is no significant stenosis, occlusion, or dissection identified within the bilateral common carotid, internal carotid, or vertebral arteries. Moderate scattered plaque formation. No significant stenosis. IMPRESSION: No significant stenosis, occlusion, or dissection identified within the carotid or vertebral arteries. Mild to moderate scattered plaque formation Brain MRI WITH AND WITHOUT CONTRAST HISTORY: Stroke symptoms. Left leg weakness. TECHNIQUE: Multiplanar multisequence MRI of the brain was performed both before and after the intravenous administration of contrast. COMPARISON STUDY: Head CT 05/28/2019. FINDINGS: There is a 12 mm focus of restricted diffusion within the white matter of the right posterior frontal lobe near the high convexity. This is consistent with an acute infarct. The midline structures are intact. A few punctate foci of T2 hyperintensity within the periventricular white matter of the supratentorial brain. These are nonspecific but favor mild microvascular ischemic change. There is no mass, hematoma, midline shift. The ventricles and sulci are within normal limits. There is no mass, hematoma, midline shift. The ventricles and sulci are within normal limits. There is an old small left parietal. Ventricular infarct. The paranasal sinuses and mastoid air cells are clear. The major vascular flow voids at the skull base are well-maintained. No abnormal enhancement. IMPRESSION: A small acute infarct within the right posterior frontal lobe near the high convexity. Code Status & VTE Plan Code Status FULL CODE VTE Prophylaxis Plan VTE Prophylaxis will be ordered: Yes Supervising Physician Co-Signing Physician Notes PA Supervision Note: I personally saw and examined the patient. I verified all marion points and agree with CHARLIE Mcdowell with the following exceptions and/or additions: Patient is a 64-year-old healthy female who presented with left lower extremity weakness with numbness and tingling. She was found to have an acute right posterior frontal lobe stroke on imaging obtained upon admission. She has no complaints of palpitations or rapid heartbeat, no chest pain, no previous blood clots or recurrent miscarriages. No history of stroke previously. Denies headache or lightheadedness, no other focal neurological symptoms. I discussed the case upon admission with neurology. History reviewed as above Vitals reviewed Gen: AAOx3, NAD HEENT: Anicteric sclerae, EOMI, PERRLA CV: RRR no mgr nl S1S2 Pulm: CTAB no wcr Abd: +BS soft NT ND no masses or hernias Ext: No edema, 2+ DP pulses Skin: No rashes, warm/dry Neuro: Cranial nerves II through XII intact, full strength throughout upper and lower extremities, sensation intact to light touch except decreased in the left leg in a stocking glove like fashion to the knee, DTRs 2+ and brisk and symmetric in triceps, biceps, brachioradialis, patellar, and right Achilles, with 3-4 beat clonus in left Achilles, rapid alternating hand movement is normal bilaterally, [id number] is intact bilaterally, she has pronator drift with the left lower extremity, no pronator drift with upper extremities bilaterally, speech is clear, mentation is normal with normal focus Imaging studies and labs reviewed ECG without evidence of ischemia 64-year-old otherwise healthy female here with cryptogenic acute ischemic CVA -Admit and placed on aspirin, high intensity statin -Continue neurochecks and appreciate neurology consultation -We will order clotting studies -Needs long-term cardiac event monitoring to assess for occult atrial fibrillation-discussed with patient and will set up for either 30-day event monitor or loop recorder placement after discharge PG Care Time/CCT Total # of Minutes Spent Total Time Spent with Patient: Total time spent is greater than 50% in coordination of care (as documented) at patient's floor/unit and/or counseling patient:
[2019-05-30] MEDS: ENOXAPARIN INJ 40 MG/0.4 ML SYR SQ SCH (13:16)
[2019-05-30] MEDS: SODIUM CHLORIDE 0.9% 1000ML 1,000 ML IV SCH (20:26)
[2019-05-31] MEDS: SODIUM CHLORIDE 0.9% 1000ML 1,000 ML IV SCH ×2 (04:27→13:17)
[2019-05-31 06:24] LABS: Basophils # (auto) 0.01 K/uL (0-0.2); Basophils % (auto) 0.2 %; Eosinophils % (auto) 5.4 %; Hemoglobin 12.9 g/dL (12.0-16.0); Immature Granulocytes # (auto) 0.01 K/uL (0.00-0.02); Immature Granulocytes % (auto) 0.2 %; Lymphocytes # (auto) 1.99 K/uL (1.2-3.4); Lymphocytes % (auto) 35.7 %; Mean Corpuscular Hemoglobin 31.9 pg (25-34); Mean Corpuscular Hgb Conc 34.9 g/dL (32-36); Mean Corpuscular Volume 91.4 fL (80-100); Mean Platelet Volume 10.5 fL (7.4-10.4); Monocytes # (auto) 0.42 K/uL (0.11-0.59); Monocytes % (auto) 7.5 %; Neutrophils # (auto) 2.85 K/uL (1.4-6.5); Platelet Count 222 K/uL (130-400); RDW Coefficient of Variation 12.5 % (11.5-14.5); RDW Standard Deviation 42.2 fL (36.4-46.3); Red Blood Count 4.05 M/uL (4.2-5.4); White Blood Count 5.58 K/uL (4.8-10.8)
[2019-05-31 07:02] LABS: Calcium 9.1 mg/dl (8.5-10.1); Creatinine Clr Calc Pharmacy 66.3 ml/min; Est GFR (African American) 97.4; Est GFR (Non-African American) 84.1; Potassium 3.9 mmol/L (3.5-5.1)
[2019-05-31] MEDS: ENOXAPARIN INJ 40 MG/0.4 ML SYR SQ SCH (08:35)
--- NOTE | 2019-05-31 08:53 | Neurology Progress Note ---
Date of Service May 31, 2019 Assessment & Plan (1) Acute CVA (cerebrovascular accident): (2) Weakness of left leg: (3) Left leg numbness: Patient had the onset of left lower extremity weakness and numbness when she woke morning of May 30. This has persisted but she is making improvements in strength, and she has no other neurologic deficits, meningeal signs, or encephalopathy. MRI of the brain shows a very small right posterior frontal convexity acute stroke likely from small vessel ischemic disease. MRI also shows some mild old, nonspecific small vessel ischemic disease present. Her risk factors for stroke are minimal, but she has an elevated total cholesterol. Her father at a young age of stroke but he had diabetes. There may be a genetic component to this. Echocardiogram showed no abnormalities. Recommendations: 1. Continue 81 milligram aspirin tablet daily. 2. Blood pressure could should be maintained at a mean arterial pressure of approximately 95-100. Hemoglobin A1c of 5.6 is unremarkable. 3. Physical and occupational therapy and increase activity as able. 4. Agree with atorvastatin 40 milligrams daily. 5. She may need further studies to evaluate for occult cardiac dysrhythmia but I will leave this to her primary care physician.. 6. Awaiting laboratory studies to evaluate for clotting disorders. I can follow up as an outpatient if desired in 3-4 weeks. I spent a total of 35 minutes with this case including review of records, direct evaluation patient at bedside, and discussion of the case with the patient and RN at bedside, and Dr. Raygoza, including differential diagnosis and treatment options. Subjective Patient has no further issues or problems. She feels that her left leg may be getting a little bit stronger. Echocardiogram was unremarkable. CBC and Chem profile were unremarkable. Triglycerides 92 and cholesterol 231. Clotting factor and other related laboratory studies are pending. Blood pressure is 116/73. Physical Exam Physical Exam: She is awake and alert. Speech is normal and there is no confusion. Extraocular eye muscles are intact without nystagmus. There is no facial droop. Coordination is normal in the arms with no tremor or ataxia. Strength is 5/5 diffusely in the upper extremities bilaterally. Left leg strength is improved compared to yesterday being 4+/5 compared to the right which is 5/5. Results & Data Vital Signs (Past 12 Hours) Vital Signs Temp Pulse Pulse Resp BP Pulse Ox 05/31/19 07:02 37.2 C 74 19 116/73 99 05/31/19 03:52 36.8 C 75 19 115/75 98 05/31/19 00:13 36.6 C 75 17 118/78 97 05/31/19 00:00 71 PG Care Time/CCT Total # of Minutes Spent Total Time Spent with Patient: Total time spent is greater than 50% in coordination of care (as documented) at patient's floor/unit and/or counseling patient:
[2019-05-31] MEDS ORDERED: ASPIRIN 81 MG ECTAB PO SCH (09:00)
[2019-05-31] MEDS ORDERED: ATORVASTATIN 40 MG TAB PO SCH (09:00)
[2019-05-31] MEDS ORDERED: STROKE PATIENT DISCHARGE STA (13:10)
--- NOTE | 2019-05-31 13:43 | Pharmacy Report ---
Pharmacist Stroke Counseling - Date of Service May 31, 2019 - Scope: Pharmacy has been consulted to provide medication discharge counseling for this patient admitted with CVA as per the Pharmacist Discharge Counseling for Stroke Patients Protocol. - Medications on Discharge: Home Medications Medication Instructions Recorded Confirmed No Known Home Medications 05/30/19 05/30/19 * Patient being started on * ASA 81mg PO QD * Atorvastatin 40mg PO QD - Action: The above medications, specifically ones for stroke treatment/prophylaxis, have been reviewed in detail with the patient and/or patient patient registration representative(s) prior to discharge. This includes indication, common adverse reactions, drug interactions, and medication administration. Medication counseling has been employed using the teach-back method to ensure understanding. - Outcome: The patient and/or patient patient registration representative(s) have demonstrated understanding of the medications. Please note, they are aware that the pharmacist will call them within 72 hours post-discharge to confirm that the appropriate medications are being taken and answer any further medication related questions the patient might have at that time. Contact information Individual to be contacted: Maria Luisa Relationship to patient (if applicable): self Phone number: [phone] (home) - okay to leave message if needed Best time to call: She is unaware if she will be returning to work this week, will answer if available or return call. Additional comments: [] Thank you for allowing pharmacy to be involved in the care of this patient. Please call [phone] or [phone] with any additional questions
--- NOTE | 2019-05-31 13:50 | Discharge Summary ---
Date of Service May 31, 2019 Admission HPI Per Admitting Provider Patient is a 64yo white female with PMH only significant for endometriosis s/p laparotomy presented to the emergency department for left lower leg weakness starting between 6-6:30 this morning. She is accompanied by her at bedside. The patient was doing well prior to going to bed last evening and admits that she had got up during the night to use the bathroom and did not notice any problem at that time. Her states he left for work around six and the patient states after he left she went to get up out of bed and noticed that her left leg was significantly weaker than the right. She states she did have associated numbness and tingling, and called her to be taken to the emergency room. Patient and deny and slurred speech, pain, dizziness. The patient states she only takes a multivitamin on a daily basis, never a smoker, rarely drinks alcohol, and denies any history of HTN, DM, afib/flutter or bleeding/clotting disorders. She had a slightly elevated LDL cholesterol last year, but states she was never initiated on any medications at that time. She states she does have a family history of diabetes, specifically her father, who ended up dying due to a massive stroke due to complications of his diabetes. Her mother had a history of hypertension, but lived to [facility]. ER course: 324mg ASA, CTA head/neck with mild-moderate plaque formation, MRI pending. Afebrile, labs without abnormality. given 1gm mag despite being 2.1. BP 132/75. 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 LLE strength 4/5, RLE 5/5 Skin: no rashes, warm and dry Neurologic: PERRL, EOMI, accommodation nl, no face palsy, no dysarthria Without pronator drift or positive romberg dyskinesia of LLE with heel to kyle Psychiatric: A+Ox3, euthymic affect Lymphatic: no cervical or axillary lymphadenopathy Principal Diagnosis 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 LLE strength improved to 4+/5, RLE 5/5 Skin: no rashes, warm and dry Neurologic: PERRL, EOMI, accommodation nl, no face palsy, no dysarthria Without pronator drift b/l UE or positive romberg. dyskinesia of LLE with heel to kyle Psychiatric: A+Ox3, euthymic affect Lymphatic: no cervical or axillary lymphadenopathy Discharge Data Allergies Allergy/AdvReac Type Severity Reaction Status Date / Time No Known Allergies Allergy Unverified 06/02/19 08:23 Consultations 05/30/19 08:40 ED Decision to Admit Stat 05/30/19 10:11 Consult Case Management - Discharge Planning Routine Consult Neurology Routine Ordered Studies 05/30/19 07:49 CT angio head w con Stat CT angio neck with con Stat CT head/brain wo con Stat 05/30/19 08:57 MR brain wo/w con Stat 05/31/19 ECHO Hospital Course (1) Acute CVA (cerebrovascular accident): * Presented with acute onset left lower extremity weakness and numbness. * Neurology consulted * Head/neck CTA negative; Head CT also negative. * MRI brain: very small right posterior frontal convexity acute CVA likely from small vessel disease; also had mild old small vessel changes. * ECHO without ASD/VSD, wma, valvular abnormality. * Telemetry reviewed, with patient remaining in NSR throughout hospitalization. * Arranged outpatient 30 day event monitor to evaluate for arrhythmias as cause of CVA. * Hemoglobin A1C 5.6. * Fasting lipid panel with slightly elevated total cholesterol, but acceptable LDL/HDL started Atorvastatin 40 mg and ASA 81 mg for secondary prevention of CVA. * Speech therapy -- approved for regular diet. * PT/OT evaluation for discharge planning-stable for dc to home. * CM set up therapy through home health * Strength improved prior to discharge, minimal decreased strength LLE. * Hypercoag studies pending at discharge (2) Weakness of left leg: * Acute symptoms started morning of 05/30.--> stroke work up/treatment as noted above. * No indication for spine imaging. * PT/OT evaluation for discharge planning as above (3) Leukopenia: * WBC count mildly low on admission, with normalization on repeat CBC (4) DVT prophylaxis: * Lovenox 40mg SQ while inpatient * Patient discharged on atorvastatin 40mg and ASA Total Time Total Time Spent Total Time Spent (In Minutes): 45 Discharge Plan Discharge Items Patient Disposition: Home - Home Health Services Reason For Visit: R POSTERIOR FRONTAL LOBE INFECTION, LLE WEAKNESS Discharge Diagnosis: Right Posterior Front Lobe Stroke, Left Lower Extremity Weakness Goals: You have been hospitalized for an acute medical problem. During your stay at [facility], we have made an effort to correct the problem that brought you to the hospital while keeping you as comfortable as possible. Medications were used to bring your condition under control and your discharge instructions will include directions for any medications you should take after leaving the hospital. Please make sure you see your Primary Care Provider as part of your follow up plan. Activity: As commented below Non-emergency contact: Primary Care Provider Call non-emergency contact if: you have any medication questions and your symptoms worsen Follow-up/Referrals: Nora Lucia PA-C [Primary Care Provider] - Brad Kitchen III, MD [Physician] - (2-4 weeks) Diet: Heart Healthy Addtl Attending Provider Instructions: Due to your stroke, you have been started on Lipitor (atorvastatin) 40mg daily, and Aspirin 81mg daily. A prescription was sent to your pharmacy for your atorvastatin. There have been other laboratory studies draw to evaluate for bleeding disorders as a cause. You should follow up with your primary care provider regarding these results, which should be resulted in the next week. You have also been set up with a 30 day even recorder, to look for underlying a fib that you may have been in and out of without knowing. This should be delivered to your house on Sunday. You have also been set up with home health by case management for therapy. Risk Factors for Stroke: You can reduce your chances of stroke by working with your medical provider to adopt a healthy lifestyle. Some specific ways to lower your chance of stroke are: * If you are a smoker, now is the time to stop smoking cigarettes * If you are diabetic, improve the control of your blood sugars * Avoid excessive amounts of alcohol * Control high blood pressure * Lose weight if you are overweight * Be sure to lead an active lifestyle * Eat a healthy diet low in salt, cholesterol and fat You should know about other risk factors for stroke that you are unable to control. These include: * Age 55 years or older * Certain racial groups: , or / * Family History of Stroke, Mini stroke or Heart Attack * Sickle Cell Disease Follow Up: It is important for you to keep your follow up appointments with your medical provider. You should be seen by your primary care provider in the next 5-7 days. You may also want to follow up with Dr. Kitchen (Neurology) who you had seen during this admission within the next 2-4 weeks. If you do not hear from his office, you may call [phone] to set up an appointment. Who to Call and When: Medical Emergencies: Call 911 immediately if you experience any of the following warning signs and symptoms of Stroke: * Sudden numbness or weakness of the face, arm or leg, especially on one side of the body * Sudden confusion, trouble speaking or understanding * Sudden trouble seeing in one or both eyes * Sudden trouble walking, dizziness, loss of balance or coordination * Sudden severe headache with no cause Do not delay calling 911 if you experience any warning signs or symptoms of a stroke. Delay in seeking medical attention may affect what treatments can be given to you. . Pending Studies at Discharge: Yes Studies:: Protein C, Protein S, Antithrombin III, Favtor V Leiden, Hexagonal Phase, [id number], anti-cardiolipin Stand-Alone Forms: Medications to Prevent Stroke, My [facility] Medications and DC Order Prescriptions: New atorvastatin 40 mg Tablet 40 mg PO QAM 30 Days Qty: 30 RF: 2 aspirin [Ecotrin Low Strength] 81 mg Tablet,Delayed Release (Dr/Ec) 81 mg PO QAM 30 Days Qty: 30 RF: 0 No Action albuterol sulfate 90 mcg/actuation HFA aerosol inhaler 2 puffs INH Q4H PRN (Reason: exertional dyspnea) RF: 0 multivitamin Tablet 1 tab PO QDD RF: 0 magnesium oxide 500 mg Tablet 500 mg PO QDD RF: 0 coenzyme Q10 [CoQ-10] 100 mg Capsule 100 mg PO QDD RF: 0 Discharge Orders: Discharge Order (Routine); Ordered 05/31/19 Ordered By: Brittney Raygoza Admission Data Admit Date/Time: 05/30/19 09:58 Attending Provider: Brittney Raygoza Admit Provider: Brittney Raygoza Primary Care Provider: Nora Lucia Other Providers: Brittney Raygoza ; Brad Kitchen III ; [facility] Other Interventions: Discharge Summary Assessment (RN) Last Done: 05/31/19 13:18 DC Date/Time DO NOT enter until pt leaves facility: 05/31/19 14:30 Supervising Physician Co-Signing Physician Notes PA Supervision Note: I personally saw and examined the patient. I verified all marion points and agree with CHARLIE Mcdowell with the following exceptions and/or additions: Patient is a 64-year-old healthy female who presented with left lower extremity weakness with numbness and tingling. She was found to have an acute right posterior frontal lobe stroke on imaging obtained upon admission. She has no complaints of palpitations or rapid heartbeat, no chest pain, no previous blood clots or recurrent miscarriages. No history of stroke previously. Denies headache or lightheadedness, no other focal neurological symptoms. Possibly cause was occult A-fib--> will need half-way event monitoring after discharge-offered loop recorder and she declined. -started ASA and statin for secondary prevention Strength greatly improved by the next day in LLE Stable for dc to home Vitals reviewed Gen: AAOx3, NAD HEENT: Anicteric sclerae, EOMI, PERRLA CV: RRR no mgr nl S1S2 Pulm: CTAB no wcr Abd: +BS soft NT ND no masses or hernias Ext: No edema, 2+ DP pulses Skin: No rashes, warm/dry Neuro: 5/5 strength in UEs and LEs throughout, improved from previous
--- NOTE | 2019-06-03 14:58 | Pharmacy Report ---
Pharmacist Post D/C Phone Note - Phone Note: Date of phone call: June 03, 2019. Individual with whom pharmacist spoke to: YANA HURD The following questions were reviewed during the phone call with responses listed below each: Can you tell me the medications that you are currently taking as well as when and how you take each medication? -See Table Below When have you missed any doses of your medications? - none What side effects are you having from your medications, specifically, the new medications you were started on? - possibly some muscle pain What questions do you have about your medications? - Talked about how statin medications can sometimes cause some muscle pain or weakness. Talked about how if it continues to mention it at her doctors appt on Sunday What problems are you having obtaining your medications? - none When is your next appointment with your primary care doctor? - Sees her PCP on sunday and neuro on the Additional comments: - The patient very friendly to talk with today - only new medications were aspirin and atorvastatin. Patient does report some muscle pain. Talked about how muscle pain could be a side effect from statin medications. Asked her to keep an eye on it and let her doctor know if it continues. She does report that the pain is less today and it could be related to stretching/walking. No other pertinent positives on interview today. As per the Pharmacist Discharge Counseling for Stroke Patients Protocol, this phone call has been completed within 72 hours of discharge. Thank you for allowing us to be involved in the care of this patient. - Home Medications: Home Medications Medication Instructions Recorded Confirmed albuterol sulfate 90 mcg/actuation 2 puffs INH Q4H PRN gm 06/01/19 06/02/19 aerosol inhaler coenzyme Q10 [CoQ-10] 100 mg PO QDD 06/02/19 06/02/19 magnesium oxide 500 mg PO QDD 06/02/19 06/02/19 multivitamin 1 tab PO QDD 06/02/19 06/02/19 New Rx's Medication Instructions Recorded aspirin [Ecotrin Low Strength] 81 mg PO QAM 30 Days #30 tab 05/31/19 atorvastatin 40 mg PO QAM 30 Days #30 tab 05/31/19
[2019-06-06 17:12] LABS: Anti Cardiolipin Ab IgG <14 GPL (< = 14); Anti Cardiolipin Ab IgM <12 MPL (< = 12); Anti-Cardiolipin Ab IgA <11 APL (< = 11); Anti-Thrombin III Activity 97 % activity (80-120); B2 Glycoprotein IgA <9 SAU (<=20); B2 Glycoprotein IgG <9 SGU (<=20); B2 Glycoprotein IgM <9 SMU (<=20); Lupus Anticoagulant Negative (Negative); Protein S Functional(Activity) 108 % (60-140)
== END 2019-05-31 14:30 | disposition home health service (06) | DRG 65 ==
LOC: ED 07:39 → 2S 09:53